=== PATIENT | male | born 1975 | race Caucasian/White ===

== ENCOUNTER 2022-03-25 07:15 | Day surgery (SDC) | payer OTHER ==
[~2022-03-25] VITALS: Ht 170.2 cm; Wt 86.2 kg
[2022-03-25] MEDS ORDERED: fentaNYL citrate 0.05 MG/ML VIAL ONE (08:08)
[2022-03-25] MEDS ORDERED: MIDAZOLAM 5 MG/5 ML VIAL ONE (08:08)
[2022-03-25] MEDS ORDERED: LIDOCAINE 2% 100 MG/5 ML UJET TP ONE (08:08)
== END 2022-03-25 10:11 | disposition home or self-care (01) ==
LOC: MMU 07:15 → MDS 07:15
PROVIDERS: ATTEND Internal Medicine Gastroenterology
DX: Z12.11 Encounter for screening for malignant neoplasm of colon (principal); I10 Essential (primary) hypertension; E11.9 Type 2 diabetes mellitus without complications; Z20.822 Contact with and (suspected) exposure to COVID-19; E78.5 Hyperlipidemia, unspecified; Z98.890 Other specified postprocedural states
CPT/HCPCS: 45378; 87426; J3010; J7030; J2250